=== PATIENT | female | born 2000 | race Hispanic/Latino ===

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

== ENCOUNTER 2021-01-23 19:55 | Emergency (ER) | payer OTHER ==
--- OUTSIDE RECORDS SUMMARY | 2021-01-23 19:58 | XMS REPORT | Continuity of Care Document ---
:2000 Author Organization [facility] t Address [address] [place] [address] Care Team Providers Name Role Phone Unavailable Unavailable Unavailable Problems Condition Condition Condition Status Onset Resolution Last Treating Co mments Source Name Details Category Date Date Treatment Clinician Date Vaginal Vaginal Problem Active [facility] bleeding bleeding [facility] - during during [facility]oria l [facility] Nausea/vom Nausea/vom Problem Active [facility] iting in iting in [facility] - Tai abdulkadir l [facility] Supervisio Supervisio Problem Active [facility] n of high n of high [facility] - risk risk Memoria l in first in first Outpat i trimester trimester ent Clinics Supervisio Supervisio Problem Active [facility] n of other n of other Lizbeth kes - high risk high risk Tai abdulkadir pregnancie pregnancie l s, s, [facility] unspecifie unspecifie en t d d Clinics trimester trimester History of History of Problem Active [facility] RhD [facility]D [facility] typing typing [facility] Fibroadeno Fibroadeno Problem Active [facility] ma of left ma of left Lizbeth kes - breast breast Memoria l [facility] Need for Need for Problem Active [facility] Tdap Tdap [facility] - vaccinatio vaccinatio Me moria n n l [facility] Anemia Anemia Problem Active [facility] affecting affecting [facility] - , , Me moria third third l trimester trimester Outp at ent Clinics Abnormal Abnormal Problem Active [facility] glucose glucose [facility] - affecting affecting Tai abdulkadir l [facility]ics Supervisio Supervisio Problem Active [facility] n of high n of high [facility] - risk risk Memoria l in third in third Outpat i trimester trimester ent Clinics Acute Acute Diagnosis Active [facility] vaginitis vaginitis [facility] - Memoria l [facility] Clin[facility] Other Other Problem Active [facility] specified specified [facility] - bacterial bacterial Tai abdulkadir agents as agents as l the cause the cause Outp ati of of ent diseases diseases Clinic s classified classified elsewhere elsewhere Checking Checking Diagnosis Active [facility] of of [facility] - intrauteri intrauteri Me moria ne device ne device l [facility] Allergies, Adverse Reactions, Alerts This patient has no known allergies or adverse reactions. Medications Ordered Filled Start Stop Current Ordering Indication Dosage Frequency Signature Comments Components Source Medication Medication Date Date Medication? Clinician (SIG) Name Name Shannan Silvervessa Yes Jame as [facility]04 Rekhi directed [facility] - 00:00: Memoria 00 [facility] Flagyl Flagyl Yes Jame [address] [facility] 4-22 Rekhi [facility] - 00:00: Memoria 00 [facility] Breast Pump Breast Pump Yes Jame as [facility] 2-21 Rekhi directed [facility] - 00:00: Memoria 00 [facility] CitraNatal CitraNatal Yes Jame as [facility] Assure Assure Rekhi directed [facility] - [facility] Immunizations Ordered Filled Immunization Date Status Comments Sourc e Immunization Name Name TDAP > 7 TDAP > 7 2018-10-[address] [facility] - Years-Adacel Years-Adacel 00:00:00 [facility] Procedures This patient has no known procedures. Encounters Start End Encounter Admission Attending Care Care Encounter Source Date/Time Date/Time Type Type Clinicians Facility Department ID 2019-04-28 2019-04-28 Outpatient Tavo Solomon [id number] [facility] 10:15:00 10:15:00 [facility] 2019-02-08 2019-02-08 Outpatient Tavo Solomon [id number] 14:45:00 14:45:00 t [facility] 2019-01-30 2019-01-30 Outpatient Tavo Solomon [id number] [address] 13:45[facility]00 [facility]45[facility] 2018-12-21 2018-12-21 [facility] [id number] 13:06:00 13:06:00 [facility] 2018-12-15 2018-12-15 [facility] [id number] 15:45:00 15:45:00 [facility] [place] 2018-12-08 2018-12-08 [facility] [id number] 09:45:00 09:45:00 [facility] [place] 2018-12-01 2018-12-01 [facility] [id number] 10:30:00 10:30:00 [facility] [place] 2018-11-24 2018-11-24 [facility] [id number] 10:00:00 10:00:00 [facility] [place] [place] 2018-11-09 2018-11-09 [facility] [id number] 13:30:00 13:30:00 t [facility] [place] [place] 2018-11-08 2018-11-08 [facility] [id number] 09:08:00 09:08:00 t [facility] [place] [place] 2018-11-07 2018-11-07 [facility] [id number] 13:12:00 13:12:00 t [facility] [place] [place] 2018-11-07 2018-11-07 [facility] [id number] 08:38:00 08:38:00 t [facility] [place] [place] 2018-10-27 2018-10-27 [facility] [id number] 10:30:00 10:30:00 t [facility] 2018-10-06 2018-10-06 [facility] [id number] 10:30:00 10:30:00 t Womens Womens [facility] 2018-09-22 2018-09-22 [facility] [id number] 10:30:00 10:30:00 t Womens [facility]omens [facility] 2018-06-21 2018-06-21 [facility] [id number] 11:00:00 11:00:00 t Women [facility] 2018-05-24 2018-05-24 [facility] [id number] [address] 15:45:00 15:45:00 [facility] 2018-05-23 2018-05-23 [facility] [id number] 09:48:00 09:48:00 [facility] 2018-05-18 2018-05-18 [facility] [id number] 10:15:00 10:15:00 [facility] [place] Results This patient has no known results.
[2021-01-23] MEDS ORDERED: ONDANSETRON 4 MG/2 ML VIAL ONE (22:02)
[2021-01-23] MEDS ORDERED: ACETAMINOPHEN 325 MG TABLET ONE (22:02)
[2021-01-23] MEDS ORDERED: NA CHLORIDE 0.9% 1,000 ML ONE (22:02)
[2021-01-23 22:11] LABS: Urine Blood Trace-intact (Negative); Urine Glucose Negative (Negative); Urine Protein Negative (Negative); Urine pH >=9.0 (5.0-7.0)
[2021-01-23 22:18] LABS: Absolute Lymphocytes (CBC) 1.1 K/uL (0.7-4.9); Basophils % 0.2 % (0-1.3); Hematocrit 38.5 % (36.0-45.0); Lymphocytes % 14.5 % (15.3-44.8); MPV 9.3 fL (7.6-11.3); RBC Red Blood Cell Count 4.47 M/uL (3.86-4.86)
[2021-01-23 22:34] LABS: Urine Bacteria 20-50 /HPF (<20); Urine RBC <5 /HPF (NONE SEEN)
[2021-01-23 22:35] LABS: ALT/SGPT 21 U/L (12-78); AST/SGOT 15 U/L (15-37); Albumin 3.7 g/dL (3.4-5.0); Alkaline Phosphatase 94 U/L (45-117); BUN Blood Urea Nitrogen 9 mg/dL (7-18); Bicarbonate 27 mmol/L (21-32); Bilirubin Direct 0.3 mg/dL (0-0.2); Bilirubin Total 2.9 mg/dL (0.2-1.0); Glucose Level 94 mg/dL (74-106); Lipase 43 U/L (73-393); Potassium 3.4 mmol/L (3.5-5.1); Protein, Total 7.3 g/dL (6.4-8.2); Sodium Level 139 mmol/L (136-145)
[2021-01-23 22:35] LABS: Urine Mucus 2+ /HPF (NONE SEEN)
[2021-01-23 23:40] LABS: SARS-COV-2 RT PCR NEGATIVE (NEGATIVE)
--- NOTE | 2021-01-24 00:08 | ER ---
Nurse's Notes [facility] Name: Agustina Cohen Age: 20 yrs Sex: Female : 2000 Arrival Date: 01/23/2021 Time: 19:55 Bed 4 Private MD: Diagnosis: Nausea;Fever, unspecified Presentation: 01/23 20:13 Chief complaint: Patient states: Fever, nausea since 1100 today. No N/V/D. 5 days late ll1 on her period. Awoke from nap today and hands were cramped straight. Coronavirus screen: Client denies travel out of the [place] in the last 14 days. fever, nausea, Client presents with at least one sign or symptom that may indicate coronavirus-19. Standard/surgical mask placed on the client. Ebola Screen: Patient denies travel to an Ebola-affected area in the 21 days before illness onset. Initial Sepsis Screen: Does the patient meet any 2 criteria? HR > 90 bpm. No. Patient's initial sepsis screen is negative. Does the patient have a suspected source of infection? No. Patient's initial sepsis screen is negative. Risk Assessment: Do you want to hurt yourself or someone else? Patient reports no desire to harm self or others. Onset of symptoms was January 23, 2021. 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 - Social history:: Smoking status: Patient denies any tobacco usage or history of. - Family history:: not pertinent. - Hospitalizations: : No recent hospitalization is reported. Screenin:12 Abuse screen: Denies threats or abuse. Denies injuries from another. Nutritional mg2 screening: No deficits noted. Tuberculosis screening: No symptoms or risk factors identified. Fall Risk IV access (20 points). Assessment: 22:12 General: Appears in no apparent distress. comfortable, Behavior is calm, cooperative. mg2 Pain: Denies pain. Neuro: Level of Consciousness is awake, alert, obeys commands, Oriented to person, place, time, situation. Cardiovascular: Capillary refill < 3 seconds Patient's skin is warm and dry. Respiratory: Airway is patent Respiratory effort is even, unlabored, Respiratory pattern is regular, symmetrical. GI: Abdomen is non-distended, Reports nausea. : No signs and/or symptoms were reported regarding the genitourinary system. EENT: No signs and/or symptoms were reported regarding the EENT system. Derm: Skin is intact, is healthy with good turgor, Skin is pink, warm \T\ dry. normal. Musculoskeletal: Circulation, motion, and sensation intact. Capillary refill < 3 seconds. Vital Signs: 20:13 BP 130 / 86; Pulse 108; Resp 18; Temp 99.2; Pulse Ox 96% ; Weight 73.48 kg; Height 5 ll1 ft. 2 in. (157.48 cm); Pain 5/10; 20:13 Body Mass Index 29.63 (73.48 kg, 157.48 cm) ll1 ED Course: 19:55 Patient arrived in ED. cl3 20:12 Arm band placed on. ll1 20:16 Triage completed. ll1 21:23 Dc Purdy MD is Attending Physician. rn 21:41 Lenny Bullard RN is Primary Nurse. mg2 22:10 Inserted saline lock: 20 gauge in left antecubital area, using aseptic technique. Blood mg2 collected. 22:13 Patient has correct armband on for positive identification. mg2 22:13 No provider procedures requiring assistance completed. mg2 01/24 00:13 IV discontinued, intact, bleeding controlled, No redness/swelling at site. Pressure mg2 dressing applied. 10:09 CT Abd/Pelvis - IV Contrast Only In Process Unspecified. EDMS Administered Medications: 01/23 22:11 Drug: NS 0.9% 1000 ml Route: IV; Rate: 1000 ml; Site: left antecubital; mg2 01/24 00:13 Follow up: Response: No adverse reaction; IV Status: Completed infusion; IV Intake: mg2 1000ml 01/23 22:11 Drug: Zofran (Ondansetron) 4 mg Route: IVP; Site: left antecubital; mg2 01/24 00:13 Follow up: Response: No adverse reaction mg2 01/23 22:11 Drug: Tylenol 650 mg Route: PO; mg2 01/24 00:13 Follow up: Response: No adverse reaction mg2 Intake: 00:13 IV: 1000ml; Total: 1000ml. mg2 Outcome: 00:08 Discharge ordered by . rn 00:13 Discharged to home ambulatory, with family. mg2 00:13 Condition: stable 00:13 Discharge instructions given to patient, Instructed on discharge instructions, follow up and referral plans. medication usage, Demonstrated understanding of instructions, follow-up care, medications, Prescriptions given X 1. 00:18 Patient left the ED. mg2 Signatures: Dispatcher [employer] EDMS Dc Purdy MD MD rn Gardose, Michele, RN RN mg2 Daisha Lundy cl3 Isaiah Lundy RN RN ll1
--- NOTE | 2021-01-24 00:09 | EDPHYS ---
Physician Documentation [facility] Name: Agustina Cohen Age: 20 yrs Sex: Female : 2000 Arrival Date: 01/23/2021 Time: 19:55 Bed 4 Private MD: ED Physician Dc Purdy HPI: 01/23 22:29 This 20 yrs old Female presents to ER via Ambulatory with complaints of rn Nausea, Fever. 22:29 The patient presents to the emergency department with nausea. Onset: The rn symptoms/episode began/occurred today. Possible causes: unknown. The symptoms are aggravated by nothing. The symptoms are alleviated by nothing. Associated signs and symptoms: Pertinent positives: fever, nausea, Pertinent negatives: abdominal pain, anorexia, constipation, diarrhea, dysuria, GI bleeding, vaginal discharge. Severity of symptoms: At their worst the symptoms were mild in the emergency department the symptoms are unchanged. The patient has not experienced similar symptoms in the past. The patient has not recently seen a physician. Reports nausea, fever, and generalized fatigue that began earlier today while at work. No abd pain. No cough/sob/runny nose/sore throat. No diarrhea. NO vomiting. 5 days late on period.. 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 - Social history:: Smoking status: Patient denies any tobacco usage or history of. - Family history:: not pertinent. - Hospitalizations: : No recent hospitalization is reported. ROS: 22:29 Constitutional: + fever and chills Eyes: Negative for injury, pain, redness, and patternator, Neck: Negative for injury, pain, and swelling, Cardiovascular: Negative for chest pain, palpitations, and edema, Respiratory: Negative for shortness of breath, cough, wheezing, and pleuritic chest pain, Abdomen/GI: + nausea, neg for abd pain and diarrhea Back: Negative for injury and pain, : Negative for injury, bleeding, discharge, and swelling, MS/Extremity: Negative for injury and deformity, Skin: Negative for injury, rash, and discoloration, Neuro: Negative for headache, numbness, tingling, and seizure. Exam: 22:29 Constitutional: This is a well developed, well nourished patient who is awake, alert, rn and in no acute distress. Head/Face: Normocephalic, atraumatic. Eyes: Pupils equal round and reactive to light, extra-ocular motions intact. Lids and lashes normal. Conjunctiva and sclera are non-icteric and not injected. Cornea within normal limits. Periorbital areas with no swelling, redness, or edema. Neck: Trachea midline, no thyromegaly or masses palpated, and no cervical lymphadenopathy. Supple, full range of motion without nuchal rigidity, or vertebral point tenderness. No Meningismus. Cardiovascular: Tachycardic, regular Respiratory: No increased work of breathing, no retractions or nasal flaring. Abdomen/GI: soft, non-tender, non-distended Skin: Warm, dry with normal turgor. Normal color with no rashes, no lesions, and no evidence of cellulitis. MS/ Extremity: Pulses equal, no cyanosis. Neurovascular intact. Full, normal range of motion. Equal circumference. Neuro: Awake and alert, GCS 15, oriented to person, place, time, and situation. Vital Signs: 20:13 BP 130 / 86; Pulse 108; Resp 18; Temp 99.2; Pulse Ox 96% ; Weight 73.48 kg; Height 5 ll1 ft. 2 in. (157.48 cm); Pain 5/10; 20:13 Body Mass Index 29.63 (73.48 kg, 157.48 cm) ll1 MDM: 21:23 Patient medically screened. rn 01/24 00:06 Differential diagnosis: Nonspecific abd pain, gastritis, cholecystitis, pancreatitis, rn diverticulitis, viral gastroenteritis, gastroenteritis. Data reviewed: vital signs, nurses notes, lab test result(s), radiologic studies, CT scan, and as a result, I will discharge patient. Counseling: I had a detailed discussion with the patient and/or guardian regarding: the historical points, exam findings, and any diagnostic results supporting the discharge/admit diagnosis, lab results, radiology results, the need for outpatient follow up, to return to the emergency department if symptoms worsen or persist or if there are any questions or concerns that arise at home. Response to treatment: the patient's symptoms have markedly improved after treatment, and as a result, I will discharge patient. Special discussion: I discussed with the patient/guardian in detail that at this point there is no indication for admission to the hospital. It is understood, however, that if the symptoms persist or worsen the patient needs to return immediately for re-evaluation. ED course: No acute findings in blood/ct/covid/flu testing. Feels much better. Patient states knows about abnormal LFTs, has a GI doctor and is due for endoscopy soon. No gross change in LFTs. Neg preg. Will dc home with return precautions and prn zofran. . 01/23 21:33 Order name: Basic Metabolic Panel 01/23 21:33 Order name: CBC with Diff 01/23 21:33 Order name: Hepatic Function 01/23 21:33 Order name: Lipase 01/23 21:33 Order name: Urine Microscopic Only 01/23 21:33 Order name: Flu 01/23 21:33 Order name: COVID-19 : Document "Date of Symptom Onset" if Symptomatic. 01/23 22:12 Order name: Urine Dipstick-Ancillary; Complete Time: 23:55 EDID 01/23 22:19 Order name: CBC with Automated Diff; Complete Time: 23:55 EDID 01/23 22:28 Order name: Urine --Ancillary (enter results) [facility] 01/23 22:33 Order name: Urine --Ancillary; Complete Time: 23:55 EDID 01/23 22:35 Order name: Basic Metabolic Panel; Complete Time: 23:55 EDID 01/23 22:35 Order name: Liver (Hepatic) Function; Complete Time: 23:55 EDID 01/23 22:35 Order name: Lipase; Complete Time: 23:55 EDID 01/23 21:33 Order name: IV Saline Lock; Complete Time: 22:11 01/23 21:33 Order name: Labs collected and sent; Complete Time: 22:12 01/23 21:33 Order name: CT Abd/Pelvis - IV Contrast Only 01/23 21:33 Order name: Urine Test (obtain specimen); Complete Time: 22:11 01/23 21:33 Order name: Urine Dipstick-Ancillary (obtain specimen); Complete Time: 22:11 01/23 22:35 Order name: Urine Microscopic Only; Complete Time: 23:55 [facility] 01/23 22:45 Order name: Influenza Screen (A EDID 01/23 22:45 Order name: CORONAVIRUS [facility] 01/23 23:41 Order name: COVID-19/FLU A+B; Complete Time: 23:55 EDID Administered Medications: 01/23 22:11 Drug: NS 0.9% 1000 ml Route: IV; Rate: 1000 ml; Site: left antecubital; mg2 01/24 00:13 Follow up: Response: No adverse reaction; IV Status: Completed infusion; IV Intake: mg2 1000ml 01/23 22:11 Drug: Zofran (Ondansetron) 4 mg Route: IVP; Site: left antecubital; mg2 01/24 00:13 Follow up: Response: No adverse reaction mg2 01/23 22:11 Drug: Tylenol 650 mg Route: PO; mg2 01/24 00:13 Follow up: Response: No adverse reaction mg2 Disposition: 01/24/21 00:08 Discharged to Home. Impression: Nausea, Fever, unspecified. - Condition is Stable. - Discharge Instructions: Fever, Adult, Nausea, Adult. - Prescriptions for Zofran ODT 4 mg Oral tablet,disintegrating - place 1 tablet by TRANSLINGUAL route every 8 hours As needed; 20 tablet. - Medication Reconciliation Form, Thank You Letter, Antibiotic Education, Prescription Opioid Use, Work release form form. - Follow up: Private Physician; When: As needed; Reason: Recheck today's complaints, Re-evaluation by your physician. - Problem is new. - Symptoms have improved. Signatures: Dispatcher [employer] [facility] Dc Purdy MD MD rn Gardose, Michele, RN RN mg2 Isaiah Lundy RN RN ll1 Corrections: (The following items were deleted from the chart) 00:18 00:08 01/24/2021 00:08 Discharged to Home. Impression: Nausea; Fever, unspecified. mg2 Condition is Stable. Forms are Medication Reconciliation Form, Thank You Letter, Antibiotic Education, Prescription Opioid Use. Follow up: Private Physician; When: As needed; Reason: Recheck today's complaints, Re-evaluation by your physician. Problem is new. Symptoms have improved. rn
[2021-01-24 01:11] VITALS: BP 130/86; TEMP 99.2; O2SAT 96
--- NOTE | 2021-01-24 11:27 | RAD REPORT ---
EXAM DESCRIPTION: Abdomen Pelvis W Contrast 01/23/2021 11:38 PM CDT CLINICAL HISTORY: 20 years, Female, nausea, fever COMPARISON: None. TECHNIQUE: Contrast-enhanced images of the abdomen and pelvis were performed utilizing 2 mm slice th ickness at 2 mm interval reconstruction from the lung bases to the ischial tuberosities after the adm inistration of IV contrast. No dosing amount was provided for interpretation. Subsequent immediate de layed portal venous phase/venous component were also generated. In addition multiplanar reformats in the coronal and sagittal plane were obtained and reviewed. An individualized dose optimization technique, Automated Exposure Control, was utilized for the perfo rmed procedure. FINDINGS: The lung bases demonstrate to be clear. The liver, gallbladder, pancreas, spleen and adrenal glands demonstrate to be unremarkable, no focal lesions are noted. The kidneys demonstrate normal uptake of contrast media with no evidence for hydronephrosis. Grossly the unopacified stomach, small bowel and large bowel demonstrate to be within normal limits. There is no evidence for bowel dilatation and/or free air. The appendix is normal. The urinary bladder demonstrate to be unremarkable. The uterus demonstrate to be normal. There are no adnexal masses. The aorta demonstrate to be normal. There is no retroperitoneal lymphadenopath y. There is no evidence for ascites and/or significant abnormal fluid collections. The rest of the so ft tissue and bony structures are within normal limits. IMPRESSION: Unremarkable CT scan of the abdomen and pelvis. No acute intra-abdominal process. Electronically signed by: Jose Rafael Corley MD 01/23/2021 11:40 PM CDT Due to temporary technical issues with the PACS/Fluency reporting system, reports are being signed by the in house radiologist without review as a courtesy to ensure prompt reporting. The interpreting r adiologist is fully responsible for the content of the report.
== END 2021-01-24 00:18 | disposition home or self-care (01) ==
LOC: ER 19:55
DX: R50.9 Fever, unspecified (principal); Z20.822 Contact with and (suspected) exposure to COVID-19
CPT/HCPCS: 96361; 87088; 85025; 87086; 80048; 36415; 81025; 80076; 83690; 0240U; 74177; 96374; 99284; Q9967; J7030; J2405; 81003; 81015

== ENCOUNTER 2021-04-22 22:59 | Emergency (ER) | payer OTHER ==
--- OUTSIDE RECORDS SUMMARY | 2021-04-22 23:02 | XMS REPORT | Continuity of Care Document ---
:2000 Author Organization [facility] t Address [address] [place] [address] Care Team Providers Name Role Phone Kishore SHERIDAN Attending Clinician Problems Condition Condition Condition Status Onset Resolution Last Treating Co mments Source Name Details Category Date Date Treatment Clinician Date Vaginal Vaginal Problem Active [facility] bleeding bleeding [facility] - during during [facility] ent Clinics Nausea/vom Nausea/vom Problem Active [facility] iting in iting in [facility] - Tai abdulkadir l [facility] Supervisio Supervisio Problem Active [facility] n of high n of high [facility] - risk risk Memoria l in first in first Outpat i trimester trimester ent Clinics Supervisio Supervisio Problem Active [facility] n of other n of other Lizbeth kes - high risk high risk Tai abdulkadir pregnancie pregnancie l s, s, Outpati unspecifie unspecifie en t d d Clinics trimester trimester History of History of Problem Active [facility] RhD RhD [facility] - negative negative Memori a blood blood l typing typing [facility] Fibroadeno Fibroadeno Problem Active [facility] ma of left ma of left Lizbeth kes - breast breast Memoria l [facility] Need for Need for Problem [facility] Tdap Tdap [facility] - vaccinatio vaccinatio Me moria n n l [facility]ics Anemia Anemia Problem Active [facility] affecting affecting [facility] - , , Me moria third third l trimester trimester Outp ati ent Clinics Abnormal Abnormal Problem Active [facility] glucose glucose [facility] - affecting affecting Tai abdulkadir l [facility] ent Clinics Supervisio Supervisio Problem Active [facility] n of high n of high [facility] - risk risk Memoria l in third in third Outpat i trimester trimester ent Clinics Acute Acute Diagnosis Active [facility] vaginitis vaginitis [facility] - Memoria l [facility] ent Clinics Other Other Problem Active [facility] specified specified [facility] - bacterial bacterial Tai abdulkadir agents as agents as l the cause the cause Outp ati of of ent diseases diseases Clinic s classified classified elsewhere elsewhere Checking Checking Diagnosis Active [facility] of of [facility] - intrauteri intrauteri Me moria ne device ne device l [facility] Allergies, Adverse Reactions, Alerts This patient has no known allergies or adverse reactions. Medications Ordered Filled Start Stop Current Ordering Indication Dosage Frequency Signature Comments Components Source Medication Medication Date Date Medication? Clinician (SIG) Name Name Shannan Olsonsa Yes Jame as [facility]04 Rekhi directed [facility] - 00:00: Memoria 00 l [facility] Flagyl Flagyl Yes Jame [address] [facility] 4-22 Rekhi [facility] - 00:00: Memoria 00 l [facility] Breast Pump Breast Pump Yes Jame as [facility] 2-21 Rekhi directed [facility] - 00:00: Memoria 00 l [facility] CitraNatal CitraNatal Yes Jame as [facility] Assure Assure Rekhi directed [facility] - Memoria l [facility] Immunizations Ordered Filled Immunization Date Status Comments Sour e Immunization Name Name TDAP > 7 TDAP > 7 2018-10-[address] [facility] - Years-Adacel Years-Adacel 00:00:00 [facility] Procedures This patient has no known procedures. Encounters Start End Encounter Admission Attending Care Care Encounter Source Date/Time Date/Time Type Type Clinicians Facility Department ID 2021-04-17 2021-04-17 Emergency Kishore [facility] [id number] 09:56:00 11:39:00 Tarik Ace [id number] [place] [id number] [place] [id number] 2019-04-28 2019-04-28 [facility] [id number] [facility] 10:15:00 10:15:00 [facility] 2019-02-08 2019-02-08 [facility] [id number] [facility] 14:45:00 14:45:00 [facility] Care [facility] 2019-01-30 2019-01-30 [facility] [id number] 13:45:00 13:45:00 [facility] Clinic [facility] 2018-12-21 2018-12-21 [facility] [id number] 13:06:00 13:06:00 [facility] Care [facility] 2018-12-15 2018-12-15 [facility] [id number] 15:45:00 15:45:00 [facility] Care [facility] 2018-12-08 2018-12-08 [facility] [id number] 09:45:00 09:45:00 [facility] 2018-12-01 2018-12-01 [facility] [id number] 10:30:00 10:30:00 [facility] Care [facility] 2018-11-24 2018-11-24 [facility] [id number] 10:00:00 10:00:00 t [facility] es - Care [facility] 2018-11-09 2018-11-09 [facility] [id number] 13:30:00 13:30:00 t [facility] Care [facility] 2018-11-08 2018-11-08 [facility] [id number] 09:08:00 09:08:00 t [facility] Care [facility] 2018-11-07 2018-11-07 [facility] [id number] [address] 13:12:00 13:12:00 t [facility] Care [facility] 2018-11-07 2018-11-07 [facility] [id number] [address] 08:38:00 08:38:00 t Womens Womens [facility] 2018-10-27 2018-10-27 [facility] [id number] 10:30:00 10:30:00 t [facility] Care [facility] - Care [facility] 2018-10-06 2018-10-06 [facility] [id number] [address] 10:30:00 10:30:00 t [facility]omens Womens Care L [facility] 2018-09-22 2018-09-22 [facility] [id number] [address] 10:30:00 10:30:00 t Womens Womens Care [facility] - Care [facility] 2018-06-21 2018-06-21 [facility] [id number] 11:00:00 11:00:00 t Womens Womens [facility] 2018-05-24 2018-05-24 [facility] [id number] [address] 15:45:00 15:45:00 [facility] 2018-05-23 2018-05-23 [facility] [id number] 09:48:00 09:48:00 [facility] 2018-05-18 2018-05-18 [facility] [id number] 10:15:00 10:15:00 t [facility] Results This patient has no known results.
[2021-04-23 03:14] LABS: Urine Blood Negative (Negative); Urine Glucose Negative (Negative); Urine Protein Negative (Negative); Urine pH 7.5 (5.0-7.0)
--- NOTE | 2021-04-23 03:37 | ER ---
Nurse's Notes [facility] Name: Agustina Cohen Age: 20 yrs Sex: Female : 2000 Arrival Date: 04/22/2021 Time: 23:19 Bed 17 Private MD: Diagnosis: Cough;Bronchitis, not specified as acute or chronic Presentation: 04/22 23:46 Chief complaint: Patient states: she was seen in [facility] on and dx with an bb upper respiratory infection but symptoms are getting worse now she has fever at home it was 99.9 tonight and she is having chills and a headache. Coronavirus screen: At this time, the client does not indicate any symptoms associated with coronavirus-19. Ebola Screen: No symptoms or risks identified at this time. Initial Sepsis Screen: Does the patient meet any 2 criteria? No. Patient's initial sepsis screen is negative. Does the patient have a suspected source of infection? No. Patient's initial sepsis screen is negative. Risk Assessment: Do you want to hurt yourself or someone else? Patient reports no desire to harm self or others. Onset of symptoms was April 22, 2021. 23:46 Method Of Arrival: Ambulatory bb 23:46 Acuity: NEGAR 3 bb Triage Assessment: 23:49 General: Appears in no apparent distress. uncomfortable, Behavior is calm, cooperative. bb Pain: Complains of pain in body aches Pain currently is 5 out of 10 on a pain scale. Neuro: Level of Consciousness is awake, alert, obeys commands, Oriented to person, place, time, situation. Cardiovascular: Capillary refill < 3 seconds Patient's skin is warm and dry. Respiratory: Respiratory effort is even, unlabored, Respiratory pattern is regular. GI: No signs and/or symptoms were reported involving the gastrointestinal system. Derm: Skin is pink, warm \T\ dry. Musculoskeletal: Circulation, motion, and sensation intact. 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 - Social history:: Smoking status: Patient denies any tobacco usage or history of. Screenin/14 02:15 Abuse screen: Denies threats or abuse. Denies injuries from another. Nutritional bs2 screening: No deficits noted. Tuberculosis screening: No symptoms or risk factors identified. Fall Risk None identified. Assessment: 02:15 General: Appears uncomfortable, slender, well groomed, well developed, well nourished, bs2 Behavior is calm, cooperative, appropriate for age. Neuro: No deficits noted. Cardiovascular: No deficits noted. Respiratory: Reports shortness of breath on exertion cough that is non-productive, pain with cough. GI: No deficits noted. : No deficits noted. EENT: No deficits noted. Derm: No deficits noted. Vital Signs: 04/22 23:46 BP 109 / 57; Pulse 80; Resp 16 S; Temp 98.8(O); Pulse Ox 99% on R/A; Weight 61.69 kg bb (R); Height 5 ft. 2 in. (157.48 cm) (R); Pain 5/10; 23:46 Body Mass Index 24.87 (61.69 kg, 157.48 cm) bb ED Course: 23:19 Patient arrived in ED. am4 23:48 Triage completed. bb 23:49 Arm band placed on Patient placed in waiting room, Patient notified of wait time. 04/23 02:05 Titus Garzon MD is Attending Physician. [facility] 02:12 Ellen Peters, RN is Primary Nurse. bs2 02:15 Patient has correct armband on for positive identification. Bed in low position. Call bs2 light in reach. Side rails up X 1. Adult w/ patient. Pulse ox on. NIBP on. Warm blanket given. 02:15 No provider procedures requiring assistance completed. IV discontinued. bs2 03:35 Michael De Los Santos MD is Referral Physician. dameon 03:46 Chest Pa And Lat (2 Views) XRAY In Process Unspecified. EDMS 03:51 Urine --Ancillary (enter results) Sent. bs2 Administered Medications: 03:51 Drug: Augmentin (Amoxicillin-Clavulanate) 875 mg Route: PO; bs2 03:51 Follow up: Response: No adverse reaction bs2 Outcome: 03:36 Discharge ordered by . dameon 03:54 Discharged to home ambulatory, with significant other. bs2 03:54 Condition: stable 03:54 Discharge instructions given to patient, Instructed on discharge instructions, follow up and referral plans. medication usage, Demonstrated understanding of instructions, follow-up care, medications, Prescriptions given X 3. 03:55 Patient left the ED. bs2 Signatures: Dispatcher [employer] EDIL Titus Garzon MD MD cha Ballard, Brenda, RN RN Reina Fountain Bridget, RN RN bs2
--- NOTE | 2021-04-23 03:37 | EDPHYS ---
Physician Documentation [facility] Name: Agustina Cohen Age: 20 yrs Sex: Female : 2000 Arrival Date: 04/22/2021 Time: 23:19 Bed 17 Private MD: ED Physician Titus Garzon HPI: 04/23 03:32 This 20 yrs old Female presents to ER via Ambulatory with complaints of Fever. dameon 03:32 The patient reports fever, that was measured at 98.8 degrees Fahrenheit. Onset: The dameon symptoms/episode began/occurred 3 day(s) ago. Modifying factors: there are no obvious modifying factors. Associated signs and symptoms: Pertinent positives: chills, cough. Severity of symptoms: At their worst the symptoms were mild moderate in the emergency department the symptoms are unchanged. The patient has experienced similar episodes in the past, a few times. 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 - Social history:: Smoking status: Patient denies any tobacco usage or history of. ROS: 04/23 03:33 Constitutional: Negative for fever, chills, and weight loss, Eyes: Negative for injury, dameon pain, redness, and discharge, ENT: Negative for injury, pain, and discharge, Neck: Negative for injury, pain, and swelling, Cardiovascular: Negative for chest pain, palpitations, and edema, Abdomen/GI: Negative for abdominal pain, nausea, vomiting, diarrhea, and constipation, Back: Negative for injury and pain, : Negative for injury, bleeding, discharge, and swelling, MS/Extremity: Negative for injury and deformity, Skin: Negative for injury, rash, and discoloration, Neuro: Negative for headache, weakness, numbness, tingling, and seizure, Psych: Negative for depression, anxiety, suicide ideation, homicidal ideation, and hallucinations, Allergy/Immunology: Negative for hives, rash, and allergies, Endocrine: Negative for neck swelling, polydipsia, polyuria, polyphagia, and marked weight changes, Hematologic/Lymphatic: Negative for swollen nodes, abnormal bleeding, and unusual bruising. Respiratory: Positive for cough, "sounds productive". Exam: 03:33 Constitutional: This is a well developed, well nourished patient who is awake, alert, dameon and in no acute distress. Head/Face: Normocephalic, atraumatic. Eyes: Pupils equal round and reactive to light, extra-ocular motions intact. Lids and lashes normal. Conjunctiva and sclera are non-icteric and not injected. Cornea within normal limits. Periorbital areas with no swelling, redness, or edema. ENT: Nares patent. No nasal discharge, no septal abnormalities noted. Tympanic membranes are normal and external auditory canals are clear. Oropharynx with no redness, swelling, or masses, exudates, or evidence of obstruction, uvula midline. Mucous membranes moist. Neck: Trachea midline, no thyromegaly or masses palpated, and no cervical lymphadenopathy. Supple, full range of motion without nuchal rigidity, or vertebral point tenderness. No Meningismus. Chest/axilla: Normal chest wall appearance and motion. Nontender with no deformity. No lesions are appreciated. Cardiovascular: Regular rate and rhythm with a normal S1 and S2. No gallops, murmurs, or rubs. Normal PMI, no JVD. No pulse deficits. Abdomen/GI: Soft, non-tender, with normal bowel sounds. No distension or tympany. No guarding or rebound. No evidence of tenderness throughout. Back: No spinal tenderness. No costovertebral tenderness. Full range of motion. Skin: Warm, dry with normal turgor. Normal color with no rashes, no lesions, and no evidence of cellulitis. MS/ Extremity: Pulses equal, no cyanosis. Neurovascular intact. Full, normal range of motion. Neuro: Awake and alert, GCS 15, oriented to person, place, time, and situation. Cranial nerves II-XII grossly intact. Motor strength 5/5 in all extremities. Sensory grossly intact. Cerebellar exam normal. Normal gait. Psych: Awake, alert, with orientation to person, place and time. Behavior, mood, and affect are within normal limits. 03:33 Respiratory: the patient does not display signs of respiratory distress, Respirations: normal, Breath sounds: rhonchi, that are mild, are scattered. Vital Signs: 04/22 23:46 BP 109 / 57; Pulse 80; Resp 16 S; Temp 98.8(O); Pulse Ox 99% on R/A; Weight 61.69 kg bb (R); Height 5 ft. 2 in. (157.48 cm) (R); Pain 5/10; 23:46 Body Mass Index 24.87 (61.69 kg, 157.48 cm) bb MDM: 04/23 02:05 Patient medically screened. [facility] 04/23 03:14 Order name: Urine Dipstick-Ancillary; Complete Time: 03:29 EDMS 04/23 03:25 Order name: Urine --Ancillary (enter results) mw2 04/23 02:06 Order name: Urine Dipstick-Ancillary (obtain specimen); Complete Time: 03:24 dameon 04/23 02:06 Order name: Chest Pa And Lat (2 Views) XRAY [facility] 04/23 03:26 Order name: Urine --Ancillary; Complete Time: 03:29 EDMS 04/23 02:06 Order name: Urine Test (obtain specimen); Complete Time: 03:24 [facility] Administered Medications: 03:51 Drug: Augmentin (Amoxicillin-Clavulanate) 875 mg Route: PO; bs2 03:51 Follow up: Response: No adverse reaction bs2 Disposition Summary: 04/23/21 03:36 Discharge Ordered Location: Home dameon Problem: new dameon Symptoms: have improved dameon Condition: Stable dameon Diagnosis - Cough dameon - Bronchitis, not specified as acute or chronic dameon Followup: dameon - With: Private Physician - When: 2 - 3 days - Reason: Recheck today's complaints, Continuance of care, Re-evaluation by your physician Followup: dameon - With: Michael De Los Santos MD - When: 2 - 3 days - Reason: Recheck today's complaints, Re-evaluation by your physician Discharge Instructions: - Discharge Summary Sheet dameon - Acute Bronchitis, Adult dameon - Cool Mist Vaporizer dameon - Cough, Adult, [id number] dameon - Cough, Adult dameon Forms: - Medication Reconciliation Form dameon - Thank You Letter dameon - Antibiotic Education dameon - Prescription Opioid Use dameon - Work release form bb Prescriptions: - Bromfed DM 2-30-10 mg/5 mL Oral syrup - take 10 milliliter by ORAL route every 6 hours; 160 milliliter; Refills: 0, dameon Product Selection Permitted - albuterol sulfate 90 mcg/actuation Inhalation HFA aerosol inhaler - inhale 2 puff by INHALATION route every 6 hours; 1 puff; Refills: 0, Product dameon Selection Permitted - Augmentin 875-125 mg Oral Tablet - take 1 tablet by ORAL route every 12 hours for 10 days; 20 tablet; Refills: 0, [facility] Product Selection Permitted - Medrol (Reginaldo) 4 mg Oral Tablets, Dose Pack - take 1 tablet by ORAL route as directed - follow package instructions; 1 dameon packet; Refills: 0, Product Selection Permitted Signatures: Dispatcher [employer] Titus Campos MD MD cha Ballard, Brenda, RN RN Ellen Bhakta RN RN bs2
[2021-04-23 04:01] VITALS: BP 109/57; TEMP 98.8; O2SAT 99
[2021-04-23] MEDS ORDERED: AMOX/K CLAV 875 MG TAB ONE (04:06)
--- NOTE | 2021-04-23 09:03 | RAD REPORT ---
EXAM DESCRIPTION: RAD - Chest Pa And Lat (2 Views) - 04/23/2021 3:46 am CLINICAL HISTORY: COUGH COMPARISON: May 2017 TECHNIQUE: Frontal and lateral views of the chest were obtained. FINDINGS: The lungs are clear of a mass or consolidation. No failure or volume overload. Lung volum es are reduced on the frontal projection compared to prior imaging. This accentuates the lung base ma rkings. Significant infiltrate is unlikely. Heart size is normal and central vasculature is within normal limits. No pleural effusion or pneumo thorax seen. No acute bony finding noted. No aortic abnormality. IMPRESSION: No acute cardiopulmonary process. No significant change from comparison study.
== END 2021-04-23 03:55 | disposition home or self-care (01) ==
LOC: ER 22:59
DX: J40 Bronchitis, not specified as acute or chronic (principal)
CPT/HCPCS: 71046; 81003; 81025; 99284